=== PATIENT | male | born 1980 | race Caucasian/White ===

== ENCOUNTER 2021-04-29 19:01 | Emergency (ER) | payer BC, OTHER ==
--- NOTE | 2021-04-29 20:46 | ED ---
General Adult HPI - General Chief complaint: Upper Respiratory Infection Stated complaint: In Quicker Appt,Dizziness,Hearing Loss Time Seen by Provider: 04/29/21 20:06 Source: patient, RN notes reviewed, old records reviewed Mode of arrival: ambulatory Limitations: no limitations - History of Present Illness Initial comments: 40-year-old male, alert and oriented 4, presents to the emergency room with complaints of one week of headaches nasal congestion. He has not been vaccinated against coronavirus. States he does have a history of hypertension but took himself off this medication. He is a half a pack a day smoker. He denies any nausea vomiting or diarrhea, no chest pain or difficulty breathing -: week(s) (1) Location: head Severity scale (1-10): 4 Quality: aching Consistency: constant Improves with: none Worsens with: none Associated Symptoms: headaches, other (Congestion and ear pressure) Treatments Prior to Arrival: none - Related Data Home Medications Medication Instructions Recorded Confirmed Amoxic-Pot Clav 875-125Mg 1 tab PO Q12HR 07/20/19 07/20/19 [Augmentin 875-125] Fluticasone Nasal [place] [Flonase 1 spray EA NOSTRIL BID 07/20/19 07/20/19 Nasal [place]] Previous Rx's Medication Instructions Recorded hydroCHLOROthiazide 25 mg PO DAILY #60 tablet 07/20/19 hydroCHLOROthiazide [Hydrodiuril] 25 mg PO DAILY 30 Days #30 tab 04/29/21 Allergies Allergy/AdvReac Type Severity Reaction Status Date / Time No Known Allergies Allergy Verified 04/29/21 19:09 Review of Systems ROS Statement: Those systems with pertinent positive or pertinent negative responses have been documented in the HPI. ROS Other: All systems not noted in ROS Statement are negative. Past Medical History Past Medical History: Hypertension Additional Past Medical History / Comment(s): [place] palsy. History of Any Multi-Drug Resistant Organisms: None Reported Past Surgical History: No Surgical Hx Reported Past Psychological History: No Psychological Hx Reported Smoking Status: Current every day smoker Past Alcohol Use History: Occasional Past Drug Use History: Marijuana General Exam Limitations: no limitations General appearance: alert, in no apparent distress Eye exam: Present: normal appearance, EOMI ENT exam: Present: normal exam, normal oropharynx, mucous membranes moist Expanded Mouth exam: Present: tongue normal, tongue elevation. Absent: drooling, trismus, muffled voice Throat exam: tonsillomegaly (Right side). negative: tonsillar erythema Neck exam: Present: normal inspection, full ROM. Absent: tenderness, men ingismus, thyromegaly Respiratory exam: Present: normal lung sounds bilaterally. Absent: respiratory distress, wheezes, rales, rhonchi, stridor, chest wall tenderness, accessory muscle use, decreased breath sounds Cardiovascular Exam: Present: regular rate, normal rhythm, normal heart sounds. Absent: systolic murmur, diastolic murmur, rubs, gallop, clicks GI/Abdominal exam: Present: soft. Absent: distended, tenderness, guarding, rebound, rigid Extremities exam: Present: normal capillary refill Back exam: Present: normal inspection, full ROM. Absent: tenderness, CVA tenderness (R), CVA tenderness (L), rash noted Neurological exam: Present: alert, oriented X3, normal gait Psychiatric exam: Present: normal affect, normal mood Skin exam: Present: warm, dry, intact, normal color. Absent: rash, cyanosis, diaphoretic Course Vital Signs 04/29/21 04/29/21 04/29/21 19:07 20:55 22:16 Temperature 98.4 F 98.6 F 98.7 F Pulse Rate 79 77 76 Respiratory 20 16 18 Rate Blood Pressure 176/107 140/72 141/68 O2 Sat by Pulse 96 97 98 Oximetry 04/29/21 04/29/21 22:34 22:36 Temperature 97.5 F L 97.6 F Pulse Rate 71 71 Respiratory 18 18 Rate Blood Pressure 179/97 179/97 O2 Sat by Pulse 97 97 Oximetry Medical Decision Making - Medical Decision Making Patient presents with nasal congestion for one week. Oxygen saturation is 96% on room air. He is afebrile in the emergency room in no acute distress. He has not been vaccinated against coronavirus and he is positive for Covid today. Based on his BMI he is eligible for monoclonal antibodies and did request them. He tolerated the infusion without any difficulty. Patient says he does have a history of high blood pressure but has not been taking his but pressure medicine. Patient was given his previously prescribed hydrochlorothiazide for HTN and his blood pressure came down to 140/72. He was given phenylephrine with minimal relief from his nasal congestion. He was also given Toradol for pain. Patient was directed to self quarantine for 10 days, take vitamin C, vitamin D and seemed to increase his fluid intake. He is given a prescription for his hydrochlorothiazide and directed to follow up with his primary care doctor next week regarding his high blood pressure. - Lab Data Lab Results 04/29/21 Range/Units 19:12 Coronavirus (PCR) Detected A (Not Detectd) Disposition Clinical Impression: Hypertension, COVID-19 Disposition: HOME SELF-CARE Condition: Good Instructions (If sedation given, give patient instructions): Coronavirus Disease 2019 (COVID-19), Hypertension (ED) Additional Instructions: You can use phenylephrine nasal spray 2-3 sprays every 4 hours as needed for congestion but do not use for more than 3 days or may cause rebound congestion. Self quarantine for 10 days from symptom onset, if you have no symptoms after 5 days, you can go into public with a mask for the last 5 days. You can take vitamin C, vitamin D and zinc for immune health. Take your blood pressure medication as prescribed and follow-up with your primary care doctor next week. Return to the emergency room with any new or worsening symptoms Prescriptions: hydroCHLOROthiazide [Hydrodiuril] 25 mg PO DAILY 30 Days #30 tab Is patient prescribed a controlled substance at d/c from ED?: No Referrals: None,Stated [Primary Care Provider] - 1-2 days Time of Disposition: 22:51
[2021-04-29] MEDS ORDERED: PHENYLEPHRINE 0.25% NASAL SPRA 1 SPRAY/ML NASAL STA (20:49)
[2021-04-29] MEDS ORDERED: SODIUM CHLORIDE 0.9% 50 ML IVPB ONE (21:00)
[2021-04-29] MEDS ORDERED: hydroCHLOROthiazide 25 MG TAB PO SCH (21:00)
[2021-04-29] MEDS ORDERED: CASIRIVIMAB (REGN10933) (EUA) 600 MG, IMDEVIMAB (REGN10987) (EUA) 600 MG in SODIUM CHLO... IVPB ONE (21:00)
[2021-04-29] MEDS ORDERED: KETOROLAC 15 MG/ML 1 ML VIAL IVP STA (21:08)
[2021-04-29 22:17] VITALS: RESP 18
[2021-04-29 22:35] VITALS: BP 179/97; PULSE 71
[2021-04-29 22:38] VITALS: TEMP 97.6
== END 2021-04-29 22:35 | disposition home or self-care (01) ==
LOC: EC 19:01
DX: U07.1 COVID-19 (principal); I10 Essential (primary) hypertension; F17.200 Nicotine dependence, unspecified, uncomplicated; F12.90 Cannabis use, unspecified, uncomplicated
CPT/HCPCS: 99284; 96374; 87635; J1885; Q0244

== ENCOUNTER 2024-06-28 16:30 | Emergency (ER) | payer OTHER ==
[2024-06-28 16:52] VITALS: RESP 18; TEMP 98.1
--- NOTE | 2024-06-28 17:33 | ED ---
General Adult HPI - General Chief complaint: Extremity Problem,Nontraumatic Stated complaint: legs/hand numbness, sweating Time Seen by Provider: 06/28/24 16:48 Source: patient, RN notes reviewed Mode of arrival: ambulatory Limitations: no limitations - History of Present Illness Initial comments: This is a 43-year-old male with history of hypertension presenting for feeling unwell today. Patient endorses recent shaking, sweating and dry mouth and as sociated dyspnea. Mentions he has had BLE edema since summer 2023 with increased discoloration in feet and lower legs since that time. Patient also mentions some right arm tingling and general weakness. Also mentions thick bilateral eye discharge since last summer as well. Notes that his blood p ressure is not well-controlled today. Denies fever, chills, dizziness/lightheadedness, abdominal pain, N/V/D. Patient would later mention he is having constant substernal chest/epigastric pressure (4/10). Onset/Timin -: days(s) - Related Data Home Medications Medication Instructions Recorded Confirmed Amoxic-Pot Clav 875-125Mg 1 tab PO Q12HR 07/20/19 07/20/19 [Augmentin 875-125] Fluticasone Nasal [place] [Flonase 1 spray EA NOSTRIL BID 07/20/19 07/20/19 Nasal [place]] Previous Rx's Medication Instructions Recorded hydroCHLOROthiazide 25 mg PO DAILY #60 tablet 07/20/19 hydroCHLOROthiazide [Hydrodiuril] 25 mg PO DAILY 30 Days #30 tab 04/29/21 lisinopriL [Zestril] 10 mg PO DAILY #30 tab 06/28/24 Allergies Allergy/AdvReac Type Severity Reaction Status Date / Time No Known Allergies Allergy Verified 04/29/21 19:09 Review of Systems ROS Statement: Those systems with pertinent positive or pertinent negative responses have been documented in the HPI. ROS Other: All systems not noted in ROS Statement are negative. Past Medical History Past Medical History: Hypertension Additional Past Medical History / Comment(s): [place] palsy. History of Any Multi-Drug Resistant Organisms: None Reported Past Surgical History: No Surgical Hx Reported Past Psychological History: No Psychological Hx Reported Smoking Status: Current every day smoker Past Alcohol Use History: Occasional Past Drug Use History: Marijuana General Exam Limitations: no limitations General appearance: alert, in no apparent distress Head exam: Present: atraumatic, normocephalic, normal inspection Eye exam: Present: normal appearance, PERRL, EOMI. Absent: scleral icterus, conjunctival injection, periorbital swelling ENT exam: Present: normal exam, mucous membranes moist Neck exam: Present: tenderness (Positive right trapezius muscle spasm and point tenderness. Prolonged depression of spasm increased noted paresthesia in distal RUE), other (Positive right Spurling test). Absent: meningismus, lym phadenopathy Respiratory exam: Present: normal lung sounds bilaterally. Absent: respiratory distress, wheezes, rales, rhonchi, stridor, accessory muscle use, decreased breath sounds, prolonged expiratory Cardiovascular Exam: Present: regular rate, normal rhythm, normal heart sounds. Absent: systolic murmur, diastolic murmur, rubs, gallop, clicks GI/Abdominal exam: Present: soft, distended, normal bowel sounds. Absent: tenderness, guarding, rebound, rigid Extremities exam: Present: normal inspection, full ROM, normal capillary refill, pedal edema (Positive bilateral pitting edema extending to knees with scattered patches of stasis dermatitis. RLE swelling slightly worse than LLE swelling), calf tenderness (Positive right Homans' sign), other (BLE posterior tibialis pulse +2. Capillary refill less than 2 seconds. Neurovascular otherwise intact bilaterally). Absent: tenderness, joint swelling Back exam: Present: normal inspection, muscle spasm (Right trapezius muscle spasm and point tenderness). Absent: vertebral tenderness Neurological exam: Present: alert, oriented X3, CN II-XII intact, normal gait, other ([place] stroke test negative. Negative dysphagia, dysarthria, ataxia) Psychiatric exam: Present: normal affect, normal mood Skin exam: Present: warm, dry, intact, normal color. Absent: rash Course Vital Signs 06/28/24 06/28/24 06/28/24 16:49 18:48 19:57 Temperature 98.1 F Pulse Rate 71 84 83 Respiratory 18 18 18 Rate Blood Pressure 208/126 163/121 188/121 O2 Sat by Pulse 97 97 96 Oximetry 06/28/24 06/28/24 06/28/24 20:05 20:39 21:34 Temperature Pulse Rate 98 90 90 Respiratory 18 18 18 Rate Blood Pressure 185/114 178/94 164/96 O2 Sat by Pulse 96 95 99 Oximetry 06/28/24 22:00 Temperature Pulse Rate 85 Respiratory 18 Rate Blood Pressure 170/97 O2 Sat by Pulse Oximetry Medical Decision Making - Medical Decision Making Was pt. sent in by a medical professional or institution (CINDY Nicholas, [employer], urgent care, hospital, or alf...) When possible be specific @ -[No] Did you speak to anyone other than the patient for history (EMS, parent, family, police, friend...)? What history was obtained from this source @ -[No] Did you review nursing and triage notes (agree or disagree)? Why? @ -[I reviewed and agree with nursing and triage notes] Were old charts reviewed (outside hosp., previous admission, EMS record, old EKG, old radiological studies, urgent care reports/EKG's, alf records)? Report findings @ -[No old charts were reviewed] Differential Diagnosis (chest pain, altered mental status, abdominal pain women, abdominal pain men, vaginal bleeding, weakness, fever, dyspnea, syncope, headache, dizziness, GI bleed, back pain, seizure, CVA, palpatations, mental health, musculoskeletal)? @ -Differential Dyspnea: Coronary syndrome, arrhythmia, tamponade, asthma, COPD, pulmonary embolism, pneumonia, pneumothorax, pulmonary effusion, anaphylaxis, diabetic ketoacidosis, flailed chest, pulmonary contusion, diaphragmatic rupture, anemia, neuromuscular, this is not meant to be an all-inclusive list. EKG interpreted by me (3pts min.). @ -Sinus rhythm with's anterior septal ST elevation and left axis deviation. T wave inversion noted in lead I and V6. Ventricular rate 94 bpm, ANEESH 154 ms, QRS 105 ms, QTc 405 ms. X-rays interpreted by me (1pt min.). @ -[None done] CT interpreted by me (1pt min.). @ -[None done] U/S interpreted by me (1pt. min.). @ -[None done] What testing was considered but not performed or refused? (CT, X-rays, U/S, labs)? Why? @ -[None] What meds were considered but not given or refused? Why? @ -[None] Did you discuss the management of the patient with other professionals (professionals i.e. CINDY Nicholas, [employer], lab, RT, psych nurse, certified social workers in health care, wire drawer, teacher, cavalry officer, case finishing machine adjuster)? Give summary @ -[No] Was smoking cessation discussed for >3mins.? @ -[No] Was critical care preformed (if so, how long)? @ -[No] Were there social determinants of health that impacted care today? How? (Homelessness, low income, unemployed, alcoholism, drug addiction, transportation, low edu. Level, literacy, decrease access to med. care, senior living, rehab)? @ -[No] Was there de-escalation of care discussed even if they declined (Discuss DNR or withdrawal of care, Hospice)? DNR status @ -[No] What co-morbidities impacted this encounter? (DM, HTN, Smoking, COPD, CAD, Cancer, CVA, ARF, Chemo, Hep., AIDS, mental health diagnosis, sleep apnea, morbid obesity)? @ -[None] Was patient admitted / discharged? Hospital course, mention meds given and route, prescriptions, significant lab abnormalities, going to OR and other pertinent info. @ -[hospital course] Undiagnosed new problem with uncertain prognosis? @ -[No] Drug Therapy requiring intensive monitoring for toxicity (Heparin, Nitro, Insulin, Cardizem)? @ -[No] Were any procedures done? @ -[No] Diagnosis/symptom? @ -[default] Acute, or Chronic, or Acute on Chronic? @ -Acute on chronic Uncomplicated (without systemic symptoms) or Complicated (systemic symptoms)? @ -Complicated Side effects of treatment? @ -[No] Exacerbation, Progression, or Severe Exacerbation? @ -Progression Poses a threat to life or bodily function? How? (Chest pain, [place], HI, pneumonia, PE, COPD, DKA, ARF, appy, cholecystitis, CVA, Diverticulitis, Homicidal, Suicidal, threat to staff... and all critical care pts) @ -[No] - Lab Data Result diagrams: 06/28/24 16:56 06/28/24 16:57 Lab Results 06/28/24 06/28/24 06/28/24 Range/Units 16:56 16:57 16:57 WBC 10.2 (3.8-10.6) k/uL RBC 5.54 (4.30-5.90) m/uL Hgb 16.6 (13.0-17.5) gm/dL Hct 50.8 (39.0-53.0) % MCV 91.7 (80.0-100.0) fL MCH 30.0 (25.0-35.0) pg MCHC 32.7 (31.0-37.0) g/dL RDW 13.1 (11.5-15.5) % Plt Count 265 (150-450) k/uL MPV 6.9 Neutrophils % 58 % Lymphocytes % 31 % Monocytes % 7 % Eosinophils % 2 % Basophils % 1 % Neutrophils # 6.0 (1.3-7.7) k/uL Lymphocytes # 3.2 (1.0-4.8) k/uL Monocytes # 0.7 (0-1.0) k/uL Eosinophils # 0.2 (0-0.7) k/uL Basophils # 0.1 (0-0.2) k/uL PT 10.9 (10.0-12.5) sec INR 1.0 (<1.2) APTT 24.1 (22.0-30.0) sec D-Dimer (<0.60) mg/L FEU Sodium 137 (137-145) mmol/L Potassium 4.3 (3.5-5.1) mmol/L Chloride 104 (98-107) mmol/L Carbon Dioxide 25 (22-30) mmol/L Anion Gap 8 mmol/L BUN 15 (9-20) mg/dL Creatinine 0.93 (0.66-1.25) mg/dL Est GFR (CKD-EPI)AfAm >90 (>60 ml/min/1.73 sqM) Est GFR (CKD-EPI)NonAf >90 (>60 ml/min/1.73 sqM) Glucose 89 (74-99) mg/dL Calcium 10.2 (8.4-10.2) mg/dL Magnesium (1.6-2.3) mg/dL Total Bilirubin 0.5 (0.2-1.3) mg/dL AST 39 (17-59) U/L ALT 53 H (4-49) U/L Alkaline Phosphatase 95 (38-126) U/L Troponin I (0.000-0.034) ng/mL NT-Pro-B Natriuret Pep pg/mL Total Protein 7.6 (6.3-8.2) g/dL Albumin 4.5 (3.5-5.0) g/dL 06/28/24 06/28/24 06/28/24 Range/Units 16:57 17:46 18:49 WBC (3.8-10.6) k/uL RBC (4.30-5.90) m/uL Hgb (13.0-17.5) gm/dL Hct (39.0-53.0) % MCV (80.0-100.0) fL MCH (25.0-35.0) pg MCHC (31.0-37.0) g/dL RDW (11.5-15.5) % Plt Count (150-450) k/uL MPV Neutrophils % % Lymphocytes % % Monocytes % % Eosinophils % % Basophils % % Neutrophils # (1.3-7.7) k/uL Lymphocytes # (1.0-4.8) k/uL Monocytes # (0-1.0) k/uL Eosinophils # (0-0.7) k/uL Basophils # (0-0.2) k/uL PT (10.0-12.5) sec INR (<1.2) APTT (22.0-30.0) sec D-Dimer 0.55 (<0.60) mg/L FEU Sodium (137-145) mmol/L Potassium (3.5-5.1) mmol/L Chloride (98-107) mmol/L Carbon Dioxide (22-30) mmol/L Anion Gap mmol/L BUN (9-20) mg/dL Creatinine (0.66-1.25) mg/dL Est GFR (CKD-EPI)AfAm (>60 ml/min/1.73 sqM) Est GFR (CKD-EPI)NonAf (>60 ml/min/1.73 sqM) Glucose (74-99) mg/dL Calcium (8.4-10.2) mg/dL Magnesium 2.4 H (1.6-2.3) mg/dL Total Bilirubin (0.2-1.3) mg/dL AST (17-59) U/L ALT (4-49) U/L Alkaline Phosphatase (38-126) U/L Troponin I <0.012 (0.000-0.034) ng/mL NT-Pro-B Natriuret Pep 153 pg/mL Total Protein (6.3-8.2) g/dL Albumin (3.5-5.0) g/dL 06/28/24 Range/Units 21:19 WBC (3.8-10.6) k/uL RBC (4.30-5.90) m/uL Hgb (13.0-17.5) gm/dL Hct (39.0-53.0) % MCV (80.0-100.0) fL MCH (25.0-35.0) pg MCHC (31.0-37.0) g/dL RDW (11.5-15.5) % Plt Count (150-450) k/uL MPV Neutrophils % % Lymphocytes % % Monocytes % % Eosinophils % % Basophils % % Neutrophils # (1.3-7.7) k/uL Lymphocytes # (1.0-4.8) k/uL Monocytes # (0-1.0) k/uL Eosinophils # (0-0.7) k/uL Basophils # (0-0.2) k/uL PT (10.0-12.5) sec INR (<1.2) APTT (22.0-30.0) sec D-Dimer (<0.60) mg/L FEU Sodium (137-145) mmol/L Potassium (3.5-5.1) mmol/L Chloride (98-107) mmol/L Carbon Dioxide (22-30) mmol/L Anion Gap mmol/L BUN (9-20) mg/dL Creatinine (0.66-1.25) mg/dL Est GFR (CKD-EPI)AfAm (>60 ml/min/1.73 sqM) Est GFR (CKD-EPI)NonAf (>60 ml/min/1.73 sqM) Glucose (74-99) mg/dL Calcium (8.4-10.2) mg/dL Magnesium (1.6-2.3) mg/dL Total Bilirubin (0.2-1.3) mg/dL AST (17-59) U/L ALT (4-49) U/L Alkaline Phosphatase (38-126) U/L Troponin I 0.012 (0.000-0.034) ng/mL NT-Pro-B Natriuret Pep pg/mL Total Protein (6.3-8.2) g/dL Albumin (3.5-5.0) g/dL Disposition Clinical Impression: Hypertensive emergency, no CHF, Angina at rest Disposition: HOME SELF-CARE Condition: Good Instructions (If sedation given, give patient instructions): Hypertension (ED) Additional Instructions: Follow-up with PCP and lumber inspector regarding hypertension and further cardiac evaluation Prescriptions: lisinopriL [Zestril] 10 mg PO DAILY #30 tab Is patient prescribed a controlled substance at d/c from ED?: No Referrals: None,Stated [Primary Care Provider] - 1-2 days Zeinab Yoon MD [STAFF PHYSICIAN] - 1-2 days Felix Isaacs MD [STAFF PHYSICIAN] - 1-2 days Time of Disposition: 23:08
[2024-06-28 17:41] LABS: Basophils # (A) 0.1 k/uL (0-0.2); Basophils % (A) 1 %; Eosinophils # (A) 0.2 k/uL (0-0.7); Eosinophils % (A) 2 %; HCT 50.8 % (39.0-53.0); HGB 16.6 gm/dL (13.0-17.5); Lymphocytes # (A) 3.2 k/uL (1.0-4.8); Lymphocytes % (A) 31 %; MCHC 32.7 g/dL (31.0-37.0); MCV 91.7 fL (80.0-100.0); Mean Platelet Volume 6.9; Monocytes # (A) 0.7 k/uL (0-1.0); Monocytes % (A) 7 %; Neutrophils % (A) 58 %; Platelet Count 265 k/uL (150-450); RBC 5.54 m/uL (4.30-5.90); RDW 13.1 % (11.5-15.5); WBC 10.2 k/uL (3.8-10.6)
[2024-06-28 17:44] LABS: ALT 53 U/L (4-49); AST 39 U/L (17-59); African American GFR (CKD) >90 (>60 ml/min/1.73 sqM); Albumin 4.5 g/dL (3.5-5.0); Alkaline Phosphatase 95 U/L (38-126); Anion Gap 8 mmol/L; Blood Urea Nitrogen 15 mg/dL (9-20); Calcium 10.2 mg/dL (8.4-10.2); Carbon Dioxide 25 mmol/L (22-30); Chloride 104 mmol/L (98-107); Glucose 89 mg/dL (74-99); Non-African American GFR(CKD) >90 (>60 ml/min/1.73 sqM); Potassium 4.3 mmol/L (3.5-5.1); Sodium 137 mmol/L (137-145); Total Bilirubin 0.5 mg/dL (0.2-1.3); Total Protein 7.6 g/dL (6.3-8.2)
[2024-06-28 18:30] LABS: Magnesium 2.4 mg/dL (1.6-2.3)
[2024-06-28 18:33] LABS: Partial Thromboplastin Time 24.1 sec (22.0-30.0); Prothrombin Time 10.9 sec (10.0-12.5)
--- NOTE | 2024-06-28 18:47 | XR ---
EXAMINATION TYPE: XR chest 2V DATE OF EXAM: 06/28/2024 6:37 PM COMPARISON: Prior chest radiograph 07/20/2019. CLINICAL INDICATION: Male, 43 years old with history of SOB; PHH TECHNIQUE: XR chest 2V Frontal and lateral views of the chest. FINDINGS: Lungs/Pleura: There is no evidence of pleural effusion, focal consolidation, or pneumothorax. Pulmonary vascularity: Unremarkable. Heart/mediastinum: Cardiomediastinal silhouette is unremarkable. Musculoskeletal: No acute osseous pathology. Other findings: None IMPRESSION: No acute cardiopulmonary disease/process. [facility], , 06/28/2024 6:44 PM
[2024-06-28] MEDS: hydrALAZINE HCL 20 MG/ML 1 ML VIAL IVP STA ×2 (18:52→20:21)
[2024-06-28] MEDS: ASPIRIN 81 MG PO STA (19:55)
[2024-06-28] MEDS: NITROGLYCERIN SL TABS 0.4 MG TAB SUBLINGUAL STA (19:55)
--- NOTE | 2024-06-28 20:54 | US ---
EXAMINATION TYPE: US venous doppler duplex LE RT DATE OF EXAM: 06/28/2024 6:11 PM COMPARISON: NONE CLINICAL INDICATION: Male, 43 years old with history of pain; Not on blood thinners. No hx DVT. HTN . No injury. Pain TECHNIQUE: The lower extremity deep venous system is examined utilizing real time linear array sonog esther with graded compression, color doppler sonography, and spectral doppler. SIDE PERFORMED: Right FINDINGS: VESSELS IMAGED: Common Femoral Vein Deep Femoral Vein Greater Saphenous Vein * Femoral Vein Popliteal Vein Small Saphenous Vein * Proximal Calf Veins (* superficial vessels) Right Leg: Negative for DVT, Color Doppler imaging shows patency of the vessels. Spectral waveforms are within normal limits. IMPRESSION: No ultrasound evidence for deep venous thrombosis. [facility], , 06/28/2024 8:52 PM
[2024-06-28 23:11] VITALS: BP 170/95; PULSE 87
== END 2024-06-28 23:17 | disposition home or self-care (01) ==
LOC: EC 16:30
DX: I16.1 Hypertensive emergency (principal); F17.200 Nicotine dependence, unspecified, uncomplicated
CPT/HCPCS: 36415; 93005; 85379; 83880; 80053; 83735; 84484; 85025; 85610; 85730; 71046; 93971; 99284; J0360

== ENCOUNTER 2024-08-09 09:51 | Emergency (ER) | payer OTHER ==
[2024-08-09 09:57] VITALS: TEMP 98
[2024-08-09] MEDS: SODIUM CHLORIDE 0.9% 500 ML 500 ML IV ONE (10:44)
[2024-08-09 10:54] LABS: Basophils # (A) 0.05 10*3/uL (0.00-0.10); Basophils % (A) 0.6 %; Eosinophils # (A) 0.12 10*3/uL (0.04-0.35); Eosinophils % (A) 1.5 %; HCT 48.1 % (39.6-50.0); HGB 16.9 g/dL (13.0-17.0); Lymphocytes # (A) 2.41 10*3/uL (0.90-5.00); MCH 31.2 pg (27.0-32.0); MCHC 35.1 g/dL (32.0-37.0); MCV 88.7 fL (80.0-97.0); Monocytes % (A) 8.7 %; Neutrophils # (A) 4.64 10*3/uL (1.80-7.70); Platelet Count 237 10*3/uL (140-440); RBC 5.42 10*6/uL (4.40-5.60); RDW 12.9 % (11.5-14.5); WBC 8.02 10*3/uL (4.50-10.00)
--- NOTE | 2024-08-09 11:01 | XR ---
EXAMINATION TYPE: XR chest 1V portable DATE OF EXAM: 08/09/2024 COMPARISON: 06/28/2024 CLINICAL INDICATION: Male, 44 years old with history of left hand numbness; TECHNIQUE: Single frontal view of the chest is obtained. FINDINGS: There is no focal air space opacity, pleural effusion, or pneumothorax seen. The cardiac silhouette size is within normal limits. The osseous structures are intact. IMPRESSION: No acute process. No interval change. [facility], , 08/09/2024 10:59 AM
[2024-08-09 11:08] LABS: ALT 40 U/L (4-49); AST 31 U/L (17-59); African American GFR (CKD) >90 (>60 ml/min/1.73 sqM); Albumin 4.3 g/dL (3.5-5.0); Alkaline Phosphatase 95 U/L (38-126); Anion Gap 6 mmol/L; Blood Urea Nitrogen 15 mg/dL (9-20); Calcium 10.1 mg/dL (8.4-10.2); Carbon Dioxide 25 mmol/L (22-30); Chloride 104 mmol/L (98-107); Glucose 102 mg/dL (74-99); Magnesium 2.1 mg/dL (1.6-2.3); Non-African American GFR(CKD) >90 (>60 ml/min/1.73 sqM); Potassium 4.5 mmol/L (3.5-5.1); Sodium 135 mmol/L (137-145); Total Bilirubin 0.5 mg/dL (0.2-1.3); Total Protein 7.3 g/dL (6.3-8.2)
[2024-08-09 11:10] LABS: Partial Thromboplastin Time 23.5 sec (22.0-30.0); Prothrombin Time 11.2 sec (10.0-12.5)
--- NOTE | 2024-08-09 11:37 | CT ---
EXAMINATION TYPE: CT brain marcin wo con DATE OF EXAM: 08/09/2024 COMPARISON: None CLINICAL INDICATION: Male, 44 years old with history of left face/arm parasthesias/numbness; PHH, LT FACE/ARM PARASTHESIAS/NUMBNESS HX BELLS PALSY TECHNIQUE: CT scan of the head and cervical spine are performed without contrast. CT DLP: [address] CTDI: mGy Automated exposure control for dose reduction was used. Findings: Head CT: Ventricles, basal cisterns and sulci over convexities within normal limits and there is no mass, mass effect or shift of midline structures. No abnormal density is seen throughout the brain parenchyma and there is no acute intra or extra-axia l hemorrhage. Posterior fossa including the brainstem, fourth ventricle and cerebellar pontine angles are grossly n ormal. The intraorbital contents appear normal and symmetric. Marked chronic inflammatory changes of the left aspect of the sphenoid sinus which is nearly complete ly opacified. The mastoid air cells are well aerated. CT cervical spine: Craniovertebral junction relationships and prevertebral soft tissues are normal. The cervical vertebral segments are normal in height and alignment and there is no fracture subluxati on. The disc spaces are well-maintained in height and there is no significant degenerative disc disease. The bony cervical canal is widely patent and there is no bony encroachment of the neural foramina. The paraspinal soft tissues unremarkable. IMPRESSION: 1. Head CT: No acute bleed or mass effect. Marked chronic sphenoid sinusitis 2. CT cervical spine: No acute trauma. [facility], , 08/09/2024 11:34 AM
--- NOTE | 2024-08-09 12:00 | CT ---
EXAMINATION TYPE: CT angio head neck DATE OF EXAM: 08/09/2024 COMPARISON: None CLINICAL INDICATION: Male, 44 years old with history of left face/arm parasthesias/numbness; PHH, LT FACE/ARM PARASTHESIAS/NUMBNESS HX BELLS PALSY TECHNIQUE: CTA scan of the head and neck is performed with IV Contrast, patient injected with 65 mL of Isovue 370, axial images are obtained, coronal and sagittal reformatted images are reviewed. 3D re constructed images are created on an independent workstation and reviewed. CT DLP: [address] CTDI: mGy Automated exposure control for dose reduction was used. NASCET criteria was used in interpretation of this exam? FINDINGS: The brachiocephalic origins are widely patent and no significant stenosis. There is no significant stenosis of the common or internal carotid arteries within the neck. There is no stenosis of the vertebral arteries. Intracranially, there is no stenosis, segmental occlusion, sizable aneurysm sac or vascular malformat ion. IMPRESSION:. No significant abnormality seen. NASCET criteria was used in interpretation of this exam? [facility], Workstation: SHIN 08/09/2024 11:57 AM
--- NOTE | 2024-08-09 12:34 | ED ---
General Adult HPI - General Chief complaint: Neuro Symptoms/Deficit Stated complaint: left side heaviness of face Time Seen by Provider: 08/09/24 10:20 Source: patient, RN notes reviewed, old records reviewed Mode of arrival: ambulatory - History of Present Illness Initial comments: Patient is a 44-year-old male who presents emergency department complaining of 2 days of symptoms of paresthesias in his left arm and his fingers and hand and forearm as well as a strange paresthesia sort of sensation over the left side of his face. Also occasionally will have shooting pain down the back of his left leg. Denies any obvious injuries. 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 Unknown if this is contributing to his symptoms. Denies any fevers or chills. Symptoms have been ongoing for the last 2 days. No history of strokes. Is not on blood thinners. No injuries. Presents for further evaluation at this time. Does have a mild headache that is a typical headache for himself. He is concerned but it is because he is uncertain what is causing this. States that the left arm pain does seem to be at triggered by certain movements of his neck. Also certain movements of his shoulder. However he is concerned for possibly something intracranially or possible return of his Ag's palsy. Presents for further evaluation at this time. - Related Data Home Medications Medication Instructions Recorded Confirmed Amoxic-Pot Clav 875-125Mg 1 tab PO Q12HR 07/20/19 07/20/19 [Augmentin 875-125] Fluticasone Nasal [place] [Flonase 1 spray EA NOSTRIL BID 07/20/19 07/20/19 Nasal [place]] Previous Rx's Medication Instructions Recorded hydroCHLOROthiazide 25 mg PO DAILY #60 tablet 07/20/19 hydroCHLOROthiazide [Hydrodiuril] 25 mg PO DAILY 30 Days #30 tab 04/29/21 lisinopriL [Zestril] 10 mg PO DAILY #30 tab 06/28/24 Allergies Allergy/AdvReac Type Severity Reaction Status Date / Time No Known Allergies Allergy Verified 08/09/24 09:57 Review of Systems ROS Statement: Those systems with pertinent positive or pertinent negative responses have been documented in the HPI. Review of Systems: CONST: Denies fever EYES: Denies blurry vision ENT: Denies nasal congestion C/V: Denies Chest pain RESP: Denies shortness of breath GI: Denies abdominal pain : Denies dysuria SKIN: Denies rash. MSK: Denies joint pain. NEURO: Endorses mild headache ROS Other: All systems not noted in ROS Statement are negative. Past Medical History Past Medical History: Hypertension Additional Past Medical History / Comment(s): Tyler palsy. History of Any Multi-Drug Resistant Organisms: None Reported Past Surgical History: No Surgical Hx Reported Past Psychological History: No Psychological Hx Reported Smoking Status: Current every day smoker Past Alcohol Use History: Occasional Past Drug Use History: Marijuana General Exam - General Exam Comments Initial Comments: General: Appears in no acute distress. HEAD: Normal with no signs of head trauma. EYES: PERRLA, EOMI, conjunctiva normal, no discharge. Pupils are 3 mm and equal bilaterally. ENT: Hearing grossly intact, normal oropharynx. RESPIRATORY: Clear breath sounds bilaterally. No wheezes, rales, or rhonchi. C/V: Regular rate and rhythm. S1 and S2 auscultated, no edema, peripheral pulses 2+ and intact throughout ABD: Abd is soft, nontender, nondistended EXT: Normal range of motion, no obvious deformity. Neurovascular intact throughout. SKIN: No rashes or lesions observed on exposed skin. NEURO: Alert and oriented x 4. Cranial nerves II-XII intact. No focal sensory or strength deficits. NIH is technically 0. Subjective paresthesias to left face and the left arm and hand. No obvious deficits. No evidence of Ag's palsy. Course Vital Signs 08/09/24 08/09/24 08/09/24 09:53 10:36 12:53 Temperature 98.0 F Pulse Rate 90 89 78 Respiratory 20 18 16 Rate Blood Pressure 179/115 149/106 150/101 O2 Sat by Pulse 97 97 97 Oximetry Medical Decision Making - Medical Decision Making Was pt. sent in by a medical professional or institution (, PA, [employer] TABLE ATTENDANT, urgent care, hospital, or fci...) When possible be specific @ -No Did you speak to anyone other than the patient for history (EMS, parent, family, police, friend...)? What history was obtained from this source @ -No Did you review nursing and triage notes (agree or disagree)? Why? @ -I reviewed and agree with nursing and triage notes Were old charts reviewed (outside hosp., previous admission, EMS record, old EKG, old radiological studies, urgent care reports/EKG's, fci records)? Report findings @ -Compared with today's EKG with EKG from June 28, 2024 with no obvious significant change when compared with today's. Benign early repolarization redemonstrated. Differential Diagnosis (chest pain, altered mental status, abdominal pain women, abdominal pain men, vaginal bleeding, weakness, fever, dyspnea, syncope, headache, dizziness, GI bleed, back pain, seizure, CVA, palpatations, mental health, musculoskeletal)? @ -Paresthesias, radiculopathy, electrolyte abnormality., CVA. This list is not all inclusive. EKG interpreted by me (3pts min.). @ -As above X-rays interpreted by me (1pt min.). @ -Chest x-ray reveals no obvious acute cardiopulmonary process. CT interpreted by me (1pt min.). @ -CT brain and C-spine negative for any obvious acute intracranial process or cervical spine injury. CT angiogram head and neck reveals no evidence of acute process or large vessel occlusion. U/S interpreted by me (1pt. min.). @ -None done What testing was considered but not performed or refused? (CT, X-rays, U/S, labs)? Why? @ -None What meds were considered but not given or refused? Why? @ -None Did you discuss the management of the patient with other professionals (professionals i.e. , PA, CAFETERIA TABLE ATTENDANT, lab, RT, psych nurse, social sciences lecturer, pit tanner, te acher, ground defence officer, pillowcase folder)? Give summary @ -No Was smoking cessation discussed for >3mins.? @ -No Was critical care preformed (if so, how long)? @ -No Were there social determinants of health that impacted care today? How? (Homelessness, low income, unemployed, alcoholism, drug addiction, transportation, low edu. Level, literacy, decrease access to med. care, longterm, rehab)? @ -No Was there de-escalation of care discussed even if they declined (Discuss DNR or withdrawal of care, Hospice)? DNR status @ -No What co-morbidities impacted this encounter? (DM, HTN, Smoking, COPD, CAD, C ancer, CVA, ARF, Chemo, Hep., AIDS, mental health diagnosis, sleep apnea, morbid obesity)? @ -Hypertension Was patient admitted / discharged? Hospital course, mention meds given and route, prescriptions, significant lab abnormalities, going to OR and other pertinent info. @ -Patient presents with paresthesias and what seems to be a cervical radiculopathy. Due to his concern for possible intracranial process we we will obtain CT imaging of the head and neck as well as basic labs. Screening EKG will also be obtained. Symptoms started 2 days ago. NIH is technically 0. He has subjective paresthesias. Therefore code stroke was not activated. He was in agreement this plan. Vitals are within acceptable limits. EKG shows chronic findings with no obvious acute process. Imaging returned negative for any obvious acute process. Labs also returned unremarkable. Reevaluation, patient is feeling improved. Discussed results with him. He will be discharged home at this time. Strict return precautions discussed. I instructed the patient to follow up with their PCP in the next 1-3 days. I explained that the patient should return to the emergency department if they experience any worsening symptoms. Strict return precautions were discussed with the patient. The patient expressed understanding of these instructions. I answered all questions that the patient had. The patient was discharged home in good condition with their prescriptions and follow up information. Undiagnosed new problem with uncertain prognosis? @ -No Drug Therapy requiring intensive monitoring for toxicity (Heparin, Nitro, Insulin, Cardizem)? @ -No Were any procedures done? @ -No Diagnosis/symptom? @ -Facial paresthesias, cervical radiculopathy Acute, or Chronic, or Acute on Chronic? @ -Acute Uncomplicated (without systemic symptoms) or Complicated (systemic symptoms)? @ -Uncomplicated Side effects of treatment? @ -No Exacerbation, Progression, or Severe Exacerbation? @ -No Poses a threat to life or bodily function? How? (Chest pain, USA, OR, pneumonia, PE, COPD, DKA, ARF, appy, cholecystitis, CVA, Diverticulitis, Homicidal, Suicidal, threat to staff... and all critical care pts) @ -Unlikely at this time - Lab Data Result diagrams: 08/09/24 10:35 08/09/24 10:35 Lab Results 08/09/24 08/09/24 08/09/24 Range/Units 10:35 10:35 10:35 WBC 8.02 (4.50-10.00) 10*3/uL RBC 5.42 (4.40-5.60) 10*6/uL Hgb 16.9 (13.0-17.0) g/dL Hct 48.1 (39.6-50.0) % MCV 88.7 (80.0-97.0) fL MCH 31.2 (27.0-32.0) pg MCHC 35.1 (32.0-37.0) g/dL Plt Count 237 (140-440) 10*3/uL MPV 9.0 L (9.5-12.2) fL Immature Gran % (Auto) 1.2 % Neutrophils % 58.0 % Lymphocytes % 30.0 % Monocytes % 8.7 % Eosinophils % 1.5 % Basophils % 0.6 % Immature Gran # 0.10 H (0.00-0.04) 10*3/uL Neutrophils # 4.64 (1.80-7.70) 10*3/uL Lymphocytes # 2.41 (0.90-5.00) 10*3/uL Monocytes # 0.70 (0.20-1.00) 10*3/uL Eosinophils # 0.12 (0.04-0.35) 10*3/uL Basophils # 0.05 (0.00-0.10) 10*3/uL PT 11.2 (10.0-12.5) sec INR 1.0 (<1.2) APTT 23.5 (22.0-30.0) sec Sodium 135 L (137-145) mmol/L Potassium 4.5 (3.5-5.1) mmol/L Chloride 104 (98-107) mmol/L Carbon Dioxide 25 (22-30) mmol/L Anion Gap 6 mmol/L BUN 15 (9-20) mg/dL Creatinine 0.97 (0.66-1.25) mg/dL Est GFR (CKD-EPI)AfAm >90 (>60 ml/min/1.73 sqM) Est GFR (CKD-EPI)NonAf >90 (>60 ml/min/1.73 sqM) Glucose 102 H (74-99) mg/dL Calcium 10.1 (8.4-10.2) mg/dL Magnesium 2.1 (1.6-2.3) mg/dL Total Bilirubin 0.5 (0.2-1.3) mg/dL AST 31 (17-59) U/L ALT 40 (4-49) U/L Alkaline Phosphatase 95 (38-126) U/L Total Protein 7.3 (6.3-8.2) g/dL Albumin 4.3 (3.5-5.0) g/dL - EKG Data -: EKG Interpreted by Me EKG Comments: 12-lead Electrocardiogram Interpretation Note EKG was reviewed and interpreted by myself. 12-lead ECG performed at 1018 is interpreted by me as revealing normal sinus rhythm at a rate of 84 beats per minute. Left axis deviation. RI interval is 153 ms, QRS duration is 109 ms, QTc is [address] segment abnormalities consistent with benign early repolarization that was seen on prior EKGs. No obvious acute ST segment or T wave abnormalities present to suggest acute ischemia.. R wave progression across the precordium was satisfactory. By my interpretation this EKG is non- diagnostic for acute ischemia. Compared with EKG from June 28, 2024 with no obvious significant change when compared with today's. Benign early repolarization redemonstrated. Disposition Clinical Impression: Facial paresthesia, Cervical radiculopathy Disposition: HOME SELF-CARE Condition: Good Additional Instructions: Workup today is unremarkable. Follow-up with PCP. Return if any worsening symptoms. Is patient prescribed a controlled substance at d/c from ED?: No Referrals: None,Stated [Primary Care Provider] - 1-2 days Forms: Area PCPs Time of Disposition: 12:34
[2024-08-09 12:56] VITALS: BP 150/101; PULSE 78; RESP 16
[2024-08-09] MEDS: IBUPROFEN 800 MG TAB PO STA (13:06)
== END 2024-08-09 13:15 | disposition home or self-care (01) ==
LOC: EC 09:51
DX: M54.12 Radiculopathy, cervical region (principal); R20.2 Paresthesia of skin; I10 Essential (primary) hypertension; F17.200 Nicotine dependence, unspecified, uncomplicated
CPT/HCPCS: 36415; 93005; 80053; 83735; 85025; 85610; 85730; 71045; 72125; 70496; 70450; 70498; 99284; 96360; Q9967